=== PATIENT | female | born 1960 | race African-American/Black ===

== ENCOUNTER 2018-02-20 14:07 | Emergency (ER) | payer OTHER ==
[~2018-02-20] VITALS: Ht 165.1 cm; Wt 136.1 kg
[2018-02-20 14:30] LABS: URINE BILIRUBIN NEGATIVE (Negative); URINE BLOOD NEGATIVE (Negative); URINE CLARITY CLEAR; URINE COLOR YELLOW; URINE GLUCOSE-RANDOM* NEGATIVE (Negative); URINE KETONES NEGATIVE (Negative); URINE LEUKOCYTES-REFLEX NEGATIVE (Negative); URINE NITRITE-REFLEX NEGATIVE (Negative); URINE PROTEIN (DIPSTICK) 1+ (Negative); URINE UROBILINOGEN 0.2 E.U./dl (0.2-1.0)
[2018-02-20] MEDS ORDERED: LISINOPRIL10 MG PO (14:31)
[2018-02-20] MEDS ORDERED: HYDRALAZINE 5050 MG PO (14:31)
[2018-02-20] MEDS ORDERED: LASIX 40 MG TAB40 M2 PO (14:31)
[2018-02-20 14:47] LABS: BASOPHILS 1.5 % (0.0-2.0); EOSINOPHILS 2.6 % (0.0-3.0); HEMATOCRIT 40.3 % (37.0-47.0); HEMOGLOBIN 12.9 gm/dL (12.0-15.0); LYMPHOCYTES 32.3 % (24.0-44.0); MCV 84.2 fL (80.0-100.0); MONOCYTES 8.2 % (1.0-8.0); PLATELET COUNT 157 thou/uL (150-400); POLYS 55.4 % (36.0-66.0); RBC 4.78 mil/uL (4.20-5.00); RDW 14.5 % (10.5-14.5); WBC 7.2 thou/uL (4.0-11.0)
[2018-02-20 14:50] LABS: BACTERIA-REFLEX None Seen /HPF (None Seen); SQUAMOUS 0-3 Few /LPF (0-3); URINE RBC 0-2 Rare /HPF (0-2); URINE WBC-REFLEX 0-5 Rare /HPF (0-5)
[2018-02-20 15:01] LABS: CALCIUM 9.3 mg/dL (8.5-10.1); CREATININE 1.5 mg/dL (0.6-1.0); POTASSIUM 3.9 mmol/L (3.5-5.1)
[2018-02-20 15:08] LABS: ALBUMIN 3.7 g/dL (3.4-5.0); TOTAL BILIRUBIN 0.5 mg/dL (<0.1-1.0); TOTAL PROTEIN 8.1 g/dL (6.4-8.2)
[2018-02-20 15:14] LABS: CASTS None Seen /LPF (None Seen); CRYSTALS None Seen /LPF (None Seen)
[2018-02-20] MEDS ORDERED: LEVSIN0.125 MG PO (16:21)
[2018-02-20] MEDS ORDERED: MINERAL OIL EN133 ML RECTAL (16:30)
[2018-02-20] MEDS ORDERED: MIRALAX17 GM PO (16:30)
[2018-02-20] MEDS ORDERED: PRINIVIL10 MG PO (16:37)
[2018-02-20 17:09] VITALS: BP 167/90
== END 2018-02-20 17:09 | disposition home or self-care (01) ==
LOC: ER 14:07
PROVIDERS: Physician Assistant
DX: K59.00 Constipation, unspecified (principal); I12.9 Hypertensive chronic kidney disease with stage 1 through stage 4 chronic kidney disease, or unspecified chronic kidney disease; E11.22 Type 2 diabetes mellitus with diabetic chronic kidney disease; N18.9 Chronic kidney disease, unspecified; R06.02 Shortness of breath